=== PATIENT | male | born 1995 | race African-American/Black ===

== ENCOUNTER 2019-08-11 22:18 | Emergency (ER) | payer OTHER ==
[2019-08-11 22:39] VITALS: BP 141/67
--- NOTE | 2019-08-11 22:40 | ED Physician Documentation ---
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 remainder of the history is unknown as the patient is intoxicated. on my exam the patient denies any hi/si or aud or vis hallucinations. he admits to drinking alcohol and asking to be discharged back to [facility].) Review of Systems Constitutional: reports: Reviewed and negative Eyes: reports: Reviewed and negative Ears: reports: Reviewed and negative Nose: reports: Reviewed and negative Throat: reports: Reviewed and negative Cardiac: reports: Reviewed and negative Respiratory: reports: Reviewed and negative GI: reports: Reviewed and negative : reports: Reviewed and negative Skin: reports: Reviewed and negative Musculoskeletal: reports: Reviewed and negative Neurologic: reports: Reviewed and negative Psychiatric: reports: Other (intoxicated) Endocrine: reports: Reviewed and negative Immunocompromised: reports: Reviewed and negative PD PAST MEDICAL HISTORY - Allergies Allergies/Adverse Reactions: Allergies Allergy/AdvReac Type Severity Reaction Status Date / Time No Known Drug Allergies Allergy Verified 08/12/19 00:02 PD ED PE NORMAL - Vitals Vital signs reviewed: Yes - General General: Alert and oriented X 3, No acute distress - HEENT HEENT: PERRL - Neck Neck: Supple, no meningeal sign - Cardiac Cardiac: RRR, No murmur - Respiratory Respiratory: Clear bilaterally - Abdomen Abdomen: Normal bowel sounds, Soft, Non tender, Non distended - Derm Derm: Warm and dry - Extremities Extremities: No deformity - Neuro Neuro: Alert and oriented X 3 - Psych Psych: Other (intoxicated. patient denies HI/SI. ) Results - Vitals Vitals: Vital Signs - 24 hr 08/11/19 08/12/19 08/12/19 22:31 00:01 01:50 Temperature 36.8 C Heart Rate 95 Respiratory 12 16 17 Rate Blood Pressure 141/67 H O2 Saturation 94 08/12/19 08/12/19 08/12/19 02:37 02:53 03:10 Temperature Heart Rate Respiratory 17 16 15 Rate Blood Pressure O2 Saturation 08/12/19 03:21 Temperature Heart Rate Respiratory 17 Rate Blood Pressure O2 Saturation Oxygen O2 Source Room air - Labs Labs: Laboratory Tests 08/11/19 08/11/1908/10/20 22:52 22:52 22:52 WBC RBC Hgb Hct MCV MCH MCHC RDW Plt Count MPV Neut # (Auto) Lymph # (Auto) [place] # (Auto) Eos # (Auto) Baso # (Auto) Absolute Nucleated RBC Nucleated RBC % Sodium 140 Potassium 3.4 L Chloride 106 Carbon Dioxide 25 Anion Gap 9.0 BUN 9 Creatinine 1.3 H Estimated GFR (MDRD) 83 L Glucose 102 H Calcium 8.5 Total Bilirubin 0.8 AST 23 ALT 28 Alkaline Phosphatase 74 Total Protein 7.5 Albumin 4.3 Globulin 3.2 Albumin/Globulin Ratio 1.3 Lipase 34 TSH 1.35 Salicylates < 6.0 Acetaminophen < 10 L Ethyl Alcohol 247.9 08/11/19 23:01 WBC 5.7 RBC 4.70 Hgb 13.5 L Hct 37.3 L MCV 79.4 L MCH 28.7 MCHC 36.2 H RDW 14.0 Plt Count 258 MPV 9.2 Neut # (Auto) 3.4 Lymph # (Auto) 1.8 Overton # (Auto) 0.4 Eos # (Auto) 0.2 Baso # (Auto) 0.0 Absolute Nucleated RBC 0.00 Nucleated RBC % 0.0 Sodium Potassium Chloride Carbon Dioxide Anion Gap BUN Creatinine Estimated GFR (MDRD) Glucose Calcium Total Bilirubin AST ALT Alkaline Phosphatase Total Protein Albumin Globulin Albumin/Globulin Ratio Lipase TSH Salicylates Acetaminophen Ethyl Alcohol PD MEDICAL DECISION MAKING - ED course Complexity details: reviewed results, re-evaluated patient (03:00 patient awake, Alert, oriented steady gait clear speech patient denies homicidal or suicidal thoughts.), considered differential (alcohol intoxication. patient observed for over 5 hours. he is clinically sober at this time. patient is awake, alert & oriented. steady speech and gait. had an extensive conversation with the patient's current LT who states that patient had been drinking alcohol and he was brought in for monitoring. the patient will be taken back to [facility] to housing there and then take to medical/mental health at 07:00. ), d/w patient, other (03:20 am. LT LANDERS phone # [phone]. LT LANDERS is here to take patient back to [facility] where the patient will be observed in his barr[place] and [place] at [facility] for further evaluation and close follow up. patient denies any HI/SI currently, he is clinically sober on physical exam. ) Departure - Departure Disposition: 01 Home, Self Care Clinical Impression: Alcoholic intoxication Qualifiers: Complication of substance-induced condition: with unspecified complication Qualified Code(s): F10.929 - Alcohol use, unspecified with intoxication, unspecified Condition: Stable Instructions: ED Alcohol Intoxication Follow-Up: USHA JACKMAN MD [Primary Care Provider] - 08/12/19 Comments: follow up with [facility] medical/mental health today at 07:00. Discharge Date/Time: 08/12/19 03:30
[2019-08-11 23:07] LABS: BASOPHILS % (AUTO) 0.5 %; EOSINOPHILS # (AUTO) 0.2 10^3/uL (0.0-0.7); HGB - HEMOGLOBIN 13.5 g/dL (14.0-18.0); LYMPHOCYTES # (AUTO) 1.8 10^3/uL (1.5-3.5); LYMPHOCYTES % (AUTO) 30.6 %; MEAN CORPUSCULAR HEMOGLOBIN 28.7 pg (27.0-31.0); MEAN CORPUSCULAR HGB CONC 36.2 g/dL (32.0-36.0); MEAN CORPUSCULAR VOLUME 79.4 fL (80.0-94.0); MEAN PLATELET VOLUME 9.2 fL (7.4-11.4); MONOCYTES # (AUTO) 0.4 10^3/uL (0.0-1.0); MONOCYTES % (AUTO) 6.5 %; NEUTROPHILS # (AUTO) 3.4 10^3/uL (1.5-6.6); NEUTROPHILS % (AUTO) 59.2 %; PLT - PLATELET COUNT 258 10^3/uL (130-450); WHITE BLOOD COUNT 5.7 x10^3/uL (4.8-10.8)
[2019-08-11 23:21] LABS: ACETAMINOPHEN < 10 ug/mL (10-30); ALBUMIN 4.3 g/dL (3.2-5.5); ALBUMIN/GLOBULIN RATIO 1.3 (1.0-2.2); ALKALINE PHOSPHATASE 74 IU/L (42-121); ALT ALANINE AMINOTRANSFERASE 28 IU/L (10-60); AST ASPARTATE AMINOTRANSFERASE 23 IU/L (10-42); BILIRUBIN,TOTAL 0.8 mg/dL (0.2-1.0); BUN - BLOOD UREA NITROGEN 9 mg/dL (6-20); CALCIUM 8.5 mg/dL (8.5-10.3); CARBON DIOXIDE - CO2 25 mmol/L (21-32); CHLORIDE 106 mmol/L (101-111); CREATININE 1.3 mg/dL (0.6-1.2); GLUCOSE 102 mg/dL (70-100); LIPASE 34 U/L (22-51); SALICYLATE < 6.0 mg/dL; SODIUM 140 mmol/L (135-145); TOTAL PROTEIN 7.5 g/dL (6.7-8.2)
== END 2019-08-12 03:30 | disposition home or self-care (01) ==
LOC: ED 22:18
DX: F10.129 Alcohol abuse with intoxication, unspecified (principal)
CPT/HCPCS: 36415; 80053; 80307; 80320; 80329; 83690; 84443; 85025; 99283